=== PATIENT | male | born 1930 | race Caucasian/White ===

== ENCOUNTER → 2016-08-16 | Outpatient (CLI) | payer MEDICARE | END | disposition home or self-care (01) | LOC: PCVCCLINIC 09:30 | PROVIDERS: ATTEND Internal Medicine | DX: I25.10 Atherosclerotic heart disease of native coronary artery without angina pectoris (principal); E78.5 Hyperlipidemia, unspecified; I95.1 Orthostatic hypotension; G45.1 Carotid artery syndrome (hemispheric) | CPT/HCPCS: 80061; 93005; G0463 ==

== ENCOUNTER → 2017-02-17 | Outpatient (CLI) | payer MEDICARE | END | disposition home or self-care (01) | LOC: PCVCCLINIC 11:06 | PROVIDERS: ATTEND Internal Medicine | DX: I45.10 Unspecified right bundle-branch block (principal); I44.4 Left anterior fascicular block; I44.0 Atrioventricular block, first degree; I25.10 Atherosclerotic heart disease of native coronary artery without angina pectoris; I25.5 Ischemic cardiomyopathy; I95.1 Orthostatic hypotension; I65.23 Occlusion and stenosis of bilateral carotid arteries; I45.3 Trifascicular block; E78.5 Hyperlipidemia, unspecified; K21.9 Gastro-esophageal reflux disease without esophagitis; M19.90 Unspecified osteoarthritis, unspecified site; Z85.46 Personal history of malignant neoplasm of prostate; Z86.73 Personal history of transient ischemic attack (TIA), and cerebral infarction without residual deficits; Z79.82 Long term (current) use of aspirin; Z90.49 Acquired absence of other specified parts of digestive tract; Z95.1 Presence of aortocoronary bypass graft; Z87.891 Personal history of nicotine dependence; Z88.8 Allergy status to other drugs, medicaments and biological substances | CPT/HCPCS: 80061; 93005; G0463 ==

== ENCOUNTER → 2017-08-22 | Outpatient (CLI) | payer MEDICARE | END | disposition home or self-care (01) | LOC: PCVCCLINIC 10:35 | DX: I25.10 Atherosclerotic heart disease of native coronary artery without angina pectoris (principal); I25.5 Ischemic cardiomyopathy; I10 Essential (primary) hypertension; E78.5 Hyperlipidemia, unspecified; I65.23 Occlusion and stenosis of bilateral carotid arteries; I95.1 Orthostatic hypotension; R94.31 Abnormal electrocardiogram [ECG] [EKG]; Z87.891 Personal history of nicotine dependence; Z79.899 Other long term (current) drug therapy; Z79.82 Long term (current) use of aspirin | CPT/HCPCS: 80061; 93005; G0463 ==

== ENCOUNTER → 2018-02-27 | Outpatient (CLI) | payer MEDICARE | END | disposition home or self-care (01) | LOC: PCVCCLINIC 11:07 | DX: I25.10 Atherosclerotic heart disease of native coronary artery without angina pectoris (principal); I25.5 Ischemic cardiomyopathy; I10 Essential (primary) hypertension; E78.5 Hyperlipidemia, unspecified; I65.23 Occlusion and stenosis of bilateral carotid arteries; I95.1 Orthostatic hypotension; Z87.891 Personal history of nicotine dependence; Z79.82 Long term (current) use of aspirin | CPT/HCPCS: 80061; 93005; G0463 ==

== ENCOUNTER → 2018-09-04 | Outpatient (CLI) | payer MEDICARE | END | disposition home or self-care (01) | LOC: PCVCCLINIC 11:27 | PROVIDERS: ATTEND Internal Medicine | DX: I25.10 Atherosclerotic heart disease of native coronary artery without angina pectoris (principal); I25.5 Ischemic cardiomyopathy; I10 Essential (primary) hypertension; I95.1 Orthostatic hypotension; E78.5 Hyperlipidemia, unspecified; I65.23 Occlusion and stenosis of bilateral carotid arteries; K21.9 Gastro-esophageal reflux disease without esophagitis; M19.90 Unspecified osteoarthritis, unspecified site; Z79.82 Long term (current) use of aspirin; Z87.891 Personal history of nicotine dependence | CPT/HCPCS: 36415; 80061; 93005; G0463 ==

== ENCOUNTER → 2019-03-12 | Outpatient (CLI) | payer MEDICARE ==
--- NOTE | 2019-03-12 09:07 | PCVCIMAG ---
APPROVED REPORT Indications Stenosis Risk Factors Hypertension: TIA/CVA History Doppler Spectral Velocity Analysis PSV / EDVPSV / EDV ECA (R) 65 / 9 cm/sECA (L) 108 / 16 cm/s dICA (R) 61 / 23 cm/sdICA (L) 45 / 16 cm/s Leland (R) 73 / 25 cm/smICA (L) 71 / 22 cm/s pICA (R) 65 / 16 cm/spICA (L) 81 / 16 cm/s Bulb (R) 53 / 15 cm/sBulb (L) 61 / 16 cm/s dCCA (R) 66 / 16 cm/sdCCA (L) 89 / 18 cm/s mCCA (R) 105 / 23 cm/smCCA (L) 110 / 26 cm/s Vert (R) 31 / 9 cm/sVert (L) 37 / 12 cm/s ICA/CCA 1.11ICA/CCA 0.91 Basic Measurements Blood Pressure: Pulses: Right Left RightLeft Brachial(Sitting) 104/64toMk435/78mmHgTemporal Real Time B-Mode Imaging Vert. (R)AntegradeVert. (L)Antegrade Findings The right carotid bulb has moderate calcified plaque. The right proximal internal carotid artery shows <40% stenosis. The right common carotid artery shows no significant stenosis. The right external carotid artery shows no significant stenosis. The left carotid bulb has moderate calcified plaque. The left proximal internal carotid artery shows <40% stenosis. The left common carotid artery shows no significant stenosis. The left external carotid artery shows no significant stenosis. Conclusion 1. Right internal carotid artery stenosis (less than 40%) 2. Left internal carotid artery stenosis (less than 40%) 3. Antegrade vertebral flow
--- NOTE | 2019-03-12 09:56 | PCVCIMAG ---
APPROVED REPORT Study performed: 03/12/2019 08:57:54 EXAM: Comprehensive 2D, Doppler, and color-flow Echocardiogram Patient Location: Echo lab Status: routine BSA: 2.01 HR: 75 bpmBP: 104/76 mmHg Rhythm: NSR Other Information Study Quality: Good Risk Factors: Cardiac Risk Factors: HTN Indications CAD CABG 2D Dimensions IVSd: 11.97 (7-11mm)LVOT Diam: 23.04 (18-24mm) LVDd: 50.77 mm PWd: 7.25 (7-11mm)Ascending Ao: 35.69 (22-36mm) LVDs: 50.35 (25-40mm) Left Atrium: 51.38 (27-40mm) Aortic Root: 35.84 mm LV Single Plane 4CH: 22.96 % LV Single Plane 2CH: 33.17 % Biplane EF: 28.3 % Volumes Left Atrial Volume (Systole) Single Plane 4CH: 67.94 mLSingle Plane 2CH: 79.00 mL LA ESV Index: 37.00 mL/m2 Aortic Valve AoV Peak Jaciel.: 1.03 m/s AO Peak Gr.: 4.27 mmHgLVOT Max P.60 mmHg LVOT Max V: 0.63 m/s KINGA Vmax: 2.55 cm2 Mitral Valve E/A Ratio: 0.7 MV Decel. Time: 257.20 ms MV E Max Jaciel.: 0.67 m/s MV A Jaciel.: 0.98 m/s TDI E/Lateral E': 11.17E/Medial E': 13.40 Medial E' Jaciel.: 0.05 m/s Lateral E' Jaciel.: 0.06 m/s Pulmonary Vein P Vein S: 0.48 m/sP Vein A: 0.40 m/s P Vein D: 0.31 m/sP Vein A Dur.: 58.8 msec P Vein S/D Ratio: 1.55 Tricuspid Valve TR Peak Jaciel.: 2.37 m/s TR Peak Gr.: 22.53 mmHg Left Ventricle The left ventricle is normal size. There is normal left ventricular wall thickness. Left ventricular systolic function is moderately decreased. Akinesis of inferior and inferolateral dc LVEF is 35-40%. Mild diastolic dysfunction is present (impaired relaxation pattern). Right Ventricle The right ventricle is normal size. The right ventricular systolic function is normal. Atria The left atrium size is normal. The right atrium size is normal. Aortic Valve The aortic valve is mildly sclerotic Trace aortic regurgitation. There is no aortic valvular stenosis. Mitral Valve Mild mitral annular calcification Mild mitral regurgitation. No evidence of mitral valve stenosis. Tricuspid Valve The tricuspid valve is normal in structure. Trace tricuspid regurgitation. Pulmonary artery pressure is 30mmHg. Pulmonic Valve The pulmonary valve is normal in structure. There is no pulmonic valvular regurgitation. Great Vessels The aortic root is normal in size. IVC is normal in size and collapses >50% with inspiration. Pericardium There is no pericardial effusion. <Conclusion> Left ventricular systolic function is moderately decreased. Akinesis of inferior and inferolateral dc LVEF is 35-40%. Mild diastolic dysfunction The aortic valve is mildly sclerotic. Trace aortic regurgitation, no stenosis. Mild mitral annular calcification. Mild mitral regurgitation. Trace tricuspid regurgitation. Pulmonary artery pressure of 30mmHg. There is no pericardial effusion.
== END | disposition home or self-care (01) ==
LOC: PCVCIMAG 08:03
PROVIDERS: ATTEND Internal Medicine
DX: I65.23 Occlusion and stenosis of bilateral carotid arteries (principal); I34.0 Nonrheumatic mitral (valve) insufficiency; I25.10 Atherosclerotic heart disease of native coronary artery without angina pectoris; I25.5 Ischemic cardiomyopathy; I10 Essential (primary) hypertension; I95.1 Orthostatic hypotension; E78.5 Hyperlipidemia, unspecified; R53.83 Other fatigue; R40.0 Somnolence; Z79.82 Long term (current) use of aspirin; Z87.891 Personal history of nicotine dependence
CPT/HCPCS: 36415; 80061; 93005; 93306; 93880; G0463

== ENCOUNTER → 2019-03-27 | Outpatient (CLI) | payer MEDICARE ==
--- NOTE | 2019-03-27 11:01 | PCVCIMAG ---
APPROVED REPORT Study performed: 03/27/2019 10:02:27 Exam: Stress Echocardiogram Indication: CAD s/p CABG Patient Location: Echo lab Stress Nurse: Shante Sheriff RN Status: routine Ht: 6 ft 0 in HR: 85 bpm BP: 140/80 mmHg Medical History Medical History: CAD s/p CABG Exercise History: Physically active Procedure The patient underwent an Exercise Stress Test using the Óscar Protocol. Blood pressure, heart rate, and EKG were monitored. An Echocardiogram was performed by missile tracking technician in four stages in quad fashion. At peak stress, four selected images were obtained and placed side by side with resting images for comparison. Stress Test Details HR Resting HR: 85 bpmMax Heart Rate (APMHR): 134 bpm Max HR Achieved: 125 bpmTarget HR (85% APMHR): 113 bpm % of APMHR: 93 Recovery HR: 90 bpm HR response to stress: Normal HR response to stress BP Resting BP: 140/80 mmHg Max BP: 140/80 mmHg Recovery BP: 132/80 mmHg BP response to stress: Normal blood pressure response to stress. ECG Resting ECG: Sinus Rhythm, nonspecific ST-T abnormalities Stress ECG: Sinus Rhythm, nonspecific ST-T abnormalities ST Change: Normal Maximum ST Deviation: 0 mm Arrhythmia: VPC's Recovery ECG: Sinus Rhythm, nonspecific ST-T abnormalities Recovery ST Change: Normal Recovery ST Deviation: 0 mm Recovery Arrhythmia: None Clinical Reason for Termination: Maximal effort Stress Symptoms: Dyspnea Exercise duration: 3 min 33 sec Highest Stage Achieved: Stage 1: 1.7 mph at 10% grade. Exercise capacity: 5.80 METs Overall Exercise Capacity for Age: Normal Angina Score: None Stress ECG Conclusion ECG: Non-ischemic Clinical: Non-ischemic Holland Treadmill Score is 3.0 which is Moderate risk. Pre-Stress Echo The resting Echocardiogram showed abnormal left ventricular contractility with an estimated Ejection Fraction of about 35-40%. Inferior, inferolateral and basal septal wall akinesis. Post-Stress Echo The stress Echocardiogram showed abnormal left ventricular contractility with an estimated Ejection Fraction of about 45%. No new regional wall motion abnormalities. There was some recruitment in function of the inferior and inferolateral dc. Conclusion Clinical Response: Non-ischemic Exercise Capacity: Below Average Stress ECG Response: Non-ischemic Stress Echo Images: Non-ischemic Color doppler study shows mild mitral regurgitation. Mild tricuspid regurgitation. Pulmonary artery pressure is 37mmHg. No aortic insufficiency is noted. Nonischemic stress echocardiogram with maximal exercise stress. 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 Other Information Study Quality: Good <Conclusion> Color doppler study shows mild mitral regurgitation. Mild tricuspid regurgitation. Pulmonary artery pressure is 37mmHg. No aortic insufficiency is noted. Nonischemic stress echocardiogram with maximal exercise stress. 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
== END | disposition home or self-care (01) ==
LOC: PCVCIMAG 10:02
PROVIDERS: ATTEND Internal Medicine
DX: I08.1 Rheumatic disorders of both mitral and tricuspid valves (principal); G45.9 Transient cerebral ischemic attack, unspecified; I11.9 Hypertensive heart disease without heart failure
CPT/HCPCS: 93325; 93351